=== PATIENT | female | born 1955 | race Caucasian/White ===

== ENCOUNTER 2016-10-19 05:36 | Day surgery (SDC) | payer BC ==
[~2016-10-19] VITALS: Ht 160 cm; Wt 66.4 kg
[2016-10-19 06:30] VITALS: Ht 160 cm; Wt 66.4 kg
[2016-10-19] MEDS ORDERED: ZOCOR (07:00)
[2016-10-19] MEDS ORDERED: OLANZAPINE (07:00)
[2016-10-19] MEDS ORDERED: LOSARTAN (07:00)
[2016-10-19] MEDS ORDERED: SIMVASTATIN (07:00)
[2016-10-19] MEDS ORDERED: NEXIUM (07:00)
[2016-10-19 07:10] VITALS: BP 176/80; PULSE 77; RESP 18
[2016-10-19] MEDS ORDERED: MIDAZOLAM 1 MG/ML 2 ML INJ ONE (07:32)
[2016-10-19] MEDS ORDERED: FENTAnyl 50 MCG/ML VIAL ONE (07:32)
[2016-10-19 07:53] VITALS: BP 125/67; PULSE 67; RESP 24
--- NOTE | 2016-10-19 09:38 | GILP ---
DATE OF PROCEDURE: 10/19/2016 NAME OF PROCEDURES: Esophagogastroduodenoscopy and biopsy. SURGEON: Yazan Fox MD PREOPERATIVE DIAGNOSIS: Abdominal pain. POSTOPERATIVE DIAGNOSES: 1. Gastritis with erosions. 2. Multiple gastric polyps. 3. Biopsies were taken for histopathology. INDICATION FOR THE PROCEDURE: The patient is a 60-year-old female patient who had upper abdominal p ain, not responding to therapy. The patient was scheduled for endoscopic examination for further ev aluation. The procedure and possible complications were well explained to the patient, she understood and cons ented to the procedure. DESCRIPTION OF PROCEDURE: Under the influence of fentanyl and Versed, the gastroscope was carefully introduced into the esophagus and under direct vision, it was advanced to the stomach and through t he pylorus into the duodenal bulb and descending duodenum. FINDINGS: ESOPHAGUS: The mucosa was normal. STOMACH: The patient had gastritis with erosions. She also had multiple gastric polyps and biopsie s were taken for histopathology. DUODENUM: Normal. She tolerated the procedure very well and there was no complication from the procedure. At the end of the procedures, she was awake with stable vital signs and she was discharged home to the care of her family. IMPRESSION: 1. Gastritis with erosions. 2. Multiple gastric polyps. 3. Biopsies were taken for histopathology. PLAN: 1. Nexium 24 hours 22.3 mg p.o. q.a.m. 2. Zantac 300 mg p.o. at bedtime. 3. Await histopathology report. Dictated By: YAZAN MCKEON/JESSIKA Conf#: [id number] DID#: [id number]
--- NOTE | 2016-10-20 11:57 | CONS ---
DATE OF ADMISSION: 10/19/2016 DATE OF CONSULTATION: TYPE OF CONSULTATION: can. Dear Dr. Snow: I thank you very much for this kind referral. HISTORY OF PRESENT ILLNESS: Ms. Trena Rogel is a 60-year-old female patient who has been refe rred to me for further evaluation of upper abdominal pain associated with bloating. Symptomatic med ical therapy is not helping her. There is no definite past history of peptic ulcer disease. She is not taking any nonsteroidal anti-inflammatory agents. There is no history of gallstones. She does not have any fever, chills or jaundice. There is no history of liver disease. This patient denies any change in the bowel habit or rectal bleeding. The patient is 60 years old and she never had sc reening colonoscopy. She is hypertensive. She is not a diabetic. She does not have any heart dise ase or lung problem. There is no history of kidney disease. She has got hyperlipidemia. SOCIAL HISTORY: She is a nonsmoker. She does not abuse alcohol. FAMILY HISTORY: Negative for gastrointestinal tract neoplasm. ALLERGIES: THERE IS NO HISTORY OF SIGNIFICANT DRUG ALLERGY. MEDICATIONS: 1. Stomach medicine. 2. Losartan. 3. Zocor. PHYSICAL EXAMINATION GENERAL: She is 5 feet 3 inches tall and she weighs 140 pounds. HEART: Examination of the heart reveals normal first and second heart sounds. LUNGS: Clear. ABDOMEN: Soft without any distention. Liver and spleen are not palpable. There are no masses. Th ere is no focal tenderness. Normal bowel sounds are heard. CENTRAL NERVOUS SYSTEM: Does not reveal any focal neurological deficit. IMPRESSION: 1. Upper abdominal pain associated with bloating, not responding to therapy. 2. The patient is more than 50 years old and she needs screening colonoscopy. 3. Hypertension. 4. Hyperlipidemia. PLAN: 1. Endoscopic examination to rule out peptic ulcer disease. 2. Screening colonoscopy at a later date. The procedures and possible complications are well explained to the patient. She understands and co nsents to the procedures. I thank you once again. With warmest personal regards, Dictated By: YAZAN MCKEON/NTS Conf#: [id number] DID#: [id number]
== END 2016-10-19 11:52 | disposition home or self-care (01) ==
LOC: GIL 05:36
PROVIDERS: ATTEND Internal Medicine Gastroenterology
DX: K31.7 Polyp of stomach and duodenum (principal); K29.60 Other gastritis without bleeding; I10 Essential (primary) hypertension; E78.5 Hyperlipidemia, unspecified
CPT/HCPCS: 43239; 88305; 88312; J2250; J3010; Z7610

== ENCOUNTER 2017-01-19 08:08 | Day surgery (SDC) | payer BC ==
[~2017-01-19] VITALS: Ht 160 cm; Wt 66.0 kg
[~2017-01-19 08:08] MED LIST: LOSARTAN; NEXIUM; OLANZAPINE; SIMVASTATIN; ZOCOR
[2017-01-19] MEDS ORDERED: OMEPRAZOLE (08:41)
[2017-01-19] MEDS ORDERED: MECLIZINE (08:41)
[2017-01-19 08:43] VITALS: Ht 160 cm; Wt 66.0 kg
[2017-01-19 09:17] VITALS: BP 159/80; PULSE 74; RESP 20
[2017-01-19] MEDS ORDERED: FENTAnyl 50 MCG/ML VIAL ONE (09:49)
[2017-01-19] MEDS ORDERED: MIDAZOLAM 1 MG/ML 2 ML INJ ONE (09:49)
[2017-01-19 10:17] VITALS: BP 117/75; RESP 20
--- NOTE | 2017-01-20 08:45 | GILP ---
DATE OF PROCEDURE: 01/19/2017 PROCEDURE: Colonoscopy. SURGEON: Surjit Fox MD PREOPERATIVE DIAGNOSIS: Screening colonoscopy. POSTOPERATIVE DIAGNOSES: 1. Colonoscopy all the way to the cecum. 2. Internal hemorrhoids. 3. No colon neoplasm was identified. INDICATION: Ms. Trena Rogel is a 61-year-old female patient, who was scheduled for screening colonoscopy. The procedure and possible complications were well explained to the patient. She understood and consented to the procedure. DESCRIPTION OF PROCEDURE: Under influence of fentanyl and Versed, the colonoscope was carefully introduced in the rectum, and under direct vision it was advanced all the way to the cecum. Findings: The patient had internal hemorrhoids. No colon neoplasm was identified. She tolerated the procedure very well and there were no complications from the procedure. At the end of procedure, she was awake with stable vital signs. She was discharged home to the care of her family. IMPRESSION: 1. Colonoscopy all the way to the cecum. 2. Internal hemorrhoids. 3. No colon neoplasm was identified. PLAN: Next screening colonoscopy in 10 years. Dictated By: MD MIKE Figueroa/williams/crispin /Document#: [id number]
== END 2017-01-19 10:48 | disposition home or self-care (01) ==
LOC: GIL 08:08
PROVIDERS: ATTEND Internal Medicine Gastroenterology
DX: Z12.11 Encounter for screening for malignant neoplasm of colon (principal); K64.8 Other hemorrhoids; I10 Essential (primary) hypertension
CPT/HCPCS: 45378; J2250; J3010; Z7610